=== PATIENT | male | born 1990 | race Caucasian/White ===

== ENCOUNTER 2017-12-14 17:55 | Observation (INO) ==
[~2017-12-14 17:55] MED LIST: Bupivacaine/Epinephrine Inj 0.25% 50 ML Vial ONE; Glycopyrrolate Inj 1 MG/5 ML Syringe IV.PUSH ONE; Lidocaine PF 1% Inj 5 ML Syringe INFILTRATN ONE; Neostigmine Inj 5 MG/5 ML Syringe IV.PUSH ONE
[2017-12-14] MEDS ORDERED: Chlorhexidine Gluconate 2% 1 Pack (2 Cloths) TOPICAL SCH (18:00)
[2017-12-14] MEDS ORDERED: Metoprolol Tartrate 25 MG Tablet PO SCH (18:00)
[2017-12-14] MEDS ORDERED: Sodium Chlor 0.9% Inj 500 ML IV.SIG SCH (18:00)
[2017-12-14] MEDS ORDERED: Levofloxacin 500 mg Premix Inj 500 MG/100 ML PIGGYBACK IV.SIG ONE (18:23)
[2017-12-14] MEDS ORDERED: Levofloxacin 500 mg Premix Inj 500 MG/100 ML PIGGYBACK IV.SIG SCH (18:30)
[2017-12-14] MEDS ORDERED: Ketorolac Inj 30 MG/ML (IVP) Vial IV.PUSH PRN (19:53)
[2017-12-14] MEDS ORDERED: Post-op Orders (for Pharmacy) OTHER ONE (19:53)
[2017-12-14] MEDS ORDERED: fentaNYL Citrate Inj 100 MCG/2 ML Ampul ONE (20:01)
--- NOTE | 2017-12-14 20:22 | MH ---
cc: Nicolas Oneill MD, Joseph D MD DATE OF ADMISSION: 12/14/2017 HISTORY OF PRESENT ILLNESS: This is an update from the previous H and P dictated less than 24 hours ago. The patient had to leave the hospital prior to his emergency surgery because of an untimely delay in the operating room. He returns today for his surgery. He still has right lower quadrant pain. PAST MEDICAL HISTORY/PAST SURGICAL HISTORY: Past medical history is not changed. Refer to my previous H and P dictated less than 24 hours ago. PHYSICAL EXAMINATION: On examination, he is standing up. He still has an appendicitis on clinical exam. He still has his tattoos. He is a very pleasant, alert gentleman. LABORATORY DATA: No new blood work. IMAGING STUDIES: No new CT scan as one was done yesterday. ASSESSMENT AND PLAN: A 27-year-old gentleman who still has appendicitis from yesterday. Operating room is ready, We will be bringing him to the operating room for his surgery. Again, I explained the surgery and the fact he has an umbilical hernia and he and his significant other appeared to understand the planned procedure as they did yesterday. Nicolas Oneill MD JCRISTIAN/ , 08:12 PM , 08:20 PM
--- NOTE | 2017-12-14 20:28 | MP ---
cc: Nicolas Oneill MD, Joseph D MD DATE OF OPERATION: 12/14/2017 PREOPERATIVE DIAGNOSIS: Acute appendicitis. POSTOPERATIVE DIAGNOSIS: Acute appendicitis, umbilical hernia PROCEDURES PERFORMED: Laparoscopic appendectomy, repair of umbilical hernia. ANESTHESIA: General. SURGEON: Dr. Nicolas Oneill. PROCEDURE IN DETAIL: The patient is taken tot he operating room and placed in supine position. After anesthesia, his abdomen is prepped with Betadine. He is given preoperative antibiotics. A timeout is done. We make an incision just above the umbilicus after anesthetizing with Marcaine solution. He has a supraumbilical hernia that measures about 1 cm. It is reduced of incarcerated preperitoneal fat. Once this was reduced, we are able to place a 10 mm trocar through this defect. Camera is introduced. Two of the working ports are placed over the midline, 5 mm above the pubic tubercle, 5 mm in between the 2 previously placed ports. The appendix can be seen. It is obviously inflamed. It is able to be grasped. We take down the mesentery of the appendix with Harmonic scalpel down to the base of the appendix at the cecum. Two endo ties are then placed around the base of the appendix and the appendix is amputated, placed in an Endo Catch and pulled out through the umbilical incision. We then irrigate. Hemostasis is assured with the Harmonic scalpel. No other gross pathology seen. Liver is smooth. Peritoneal surfaces are smooth. The gallbladder looks normal. There was no perforation or much inflammatory response. We then irrigate copiously. This irrigant solution is then removed. The CO2 is removed. The ports are removed. I then repair the umbilical hernia with a 0 Vicryl in an interrupted fashion. The skin at all 3 sites is closed with 4-0 Vicryl. Steri-Strips are applied, sterile bandage is applied. The patient tolerated the procedure well. Had no immediate postop complications. Nicolas Oneill MD JDB/ , 08:10 PM , 08:26 PM
[2017-12-14] MEDS: Sod Chloride 0.9% Inj 1,000 ML IV.SIG SCH (20:30)
[2017-12-14] MEDS ORDERED: *morphine SULFATE 4 MG/ML PERIprocedure ONLY ONE (20:33)
[2017-12-14] MEDS ORDERED: Ketorolac Inj 30 MG/ML (IVP) Vial ONE (20:45)
[2017-12-14] MEDS ORDERED: HYDROmorphone PF Inj 2 MG/ML Vial IV.PUSH PRN (21:30)
[2017-12-15] MEDS: Sod Chloride 0.9% Inj 1,000 ML IV.SIG SCH (06:18)
--- NOTE | 2017-12-16 11:16 | P.DS ---
Date of admission: 12/14/17 19:53 Primary care physician: UNKNOWN Attending physician on discharge: Nicolas Oneill Brief History from admission: 27 year old male s/p laparoscopic appendectomy. DS: Diagnosis - Discharge Diagnosis (1) Appendicitis Status: Acute DS: Medications - Discharge Medications Prescriptions: ondansetron [Zofran ODT] 4 mg PO Q6-8H PRN 7 Days #14 tab PRN Reason: Nausea oxycodone-acetaminophen [Percocet] 1 tab PO Q4H PRN #15 tab PRN Reason: acute post op pain DS: Summary Hospital Course: This is a 27 year old male s/p laparoscopic appendectomy. His pain was controlled using oral pain medications. He was able to tolerate a regular diet. He will follow up in the office. He was provided with a pain prescription. - Time Spent with Patient Total time spent providing and/or coordinating discharge services: - Quality: VTE Deep Vein Thrombosis/Pulmonary Embolism Present on Admission: No Exam Narrative: Alert and awake Cardio: RRR Resp: CTAB Abd: lap sites c/d/i with Bandaids in place Results Procedures completed during hospitalization: Laparoscopic appendectomy Pending studies at discharge: Pending at discharge 12/14/17 08:51 Surgical [PTH] Routine Discharge Plan - Discharge Disposition Patient Disposition: 01 Discharge Home - Discharge Condition Condition: Good - Discharge Order Discharge Orders: Discharge Order (Routine); Ordered 12/15/17 Ordered By: Audelia Sales - Discharge Details Discharge Comment: Patient may be discharged when he meets same day surgery criteria - Physicians Team Primary Care Provider: UNKNOWN, Attending Provider: Nicolas Oneill Other Providers: Surgeons,[facility] - Rxs /Orders / Referrals /Forms Prescriptions: New ondansetron [Zofran ODT] 4 mg Tablet,Disintegrating 4 mg PO Q6-8H PRN (Reason: Nausea) 7 Days Qty: 14 RF: 0 oxycodone-acetaminophen [Percocet] 5-325 mg Tablet 1 tab PO Q4H PRN (Reason: acute post op pain) Qty: 15 RF: 0 Continue albuterol sulfate 90 mcg/actuation Hfa Aerosol Inhaler 2 puff INHALATION Q4H PRN (Reason: Cough) Referrals: Nicolas Oneill MD [Physician] - See Instructions (Appt set for December 22 at 9:20AM) UNKNOWN, [Primary Care Provider] - See Instructions
== END 2017-12-15 13:20 | disposition home or self-care (01) ==
LOC: HOR 17:55 → N07 17:55 → HPAC 17:55 → N07 22:36
PROVIDERS: ADMIT Surgery; ATTEND Surgery
PROC: LAPAPPY (ICD-10-PCS; 2017-12-14 18:38)